=== PATIENT | male | born 1980 | race Two or more races ===

== ENCOUNTER 2017-05-29 17:19 | Emergency (ER) | payer OTHER ==
[~2017-05-29] VITALS: Ht 167.6 cm; Wt 81.6 kg
[2017-05-29 17:40] VITALS: BP 113/71
[2017-05-29 18:59] VITALS: BP 110/68
[2017-05-29 19:06] LABS: BASOPHILS % (AUTO) 1.3 % (0.0-2.0); EOSINOPHILS % (AUTO) 1.6 % (0.0-3.0); LYMPHOCYTES % (AUTO) 24.3 % (20.0-45.0); MEAN CORPUSCULAR HEMOGLOBIN 32.6 PG (27.0-31.0); MEAN CORPUSCULAR HGB CONC 35.1 G/DL (32.0-36.0); MEAN CORPUSCULAR VOLUME 93 FL (80-99); MEAN PLATELET VOLUME 6.2 FL (6.5-10.1); MONOCYTES % (AUTO) 8.7 % (1.0-10.0); NEUTROPHILS % (AUTO) 64.1 % (45.0-75.0); PLATELET COUNT 245 K/UL (150-450); RED BLOOD COUNT 4.63 M/UL (4.70-6.10); RED CELL DISTRIBUTION WIDTH 11.7 % (11.6-14.8); WHITE BLOOD COUNT 8.9 K/UL (4.8-10.8)
[2017-05-29 19:07] LABS: APPEARANCE,URINE CLEAR; KETONES,URINE NEGATIVE (NEGATIVE); LEUKOCYTE ESTERASE ,URINE NEGATIVE (NEGATIVE); NITRITE,URINE NEGATIVE (NEGATIVE); PH,URINE 6 (4.5-8.0); PROTEIN,URINE NEGATIVE (NEGATIVE); UROBILINOGEN,URINE NORMAL MG/DL (0.0-1.0)
[2017-05-29 19:12] LABS: INR 0.9 (0.9-1.1); PROTHROMBIN TIME 9.8 SEC (9.30-11.50)
--- NOTE | 2017-05-29 19:15 | Emergency Room Report ---
History of Present Illness General Chief Complaint: Abdominal Pain Source: Patient Present Illness HPI [id number] walk-in from [employer] where he works with acute worsening of abdominal pain with nausea. Last BM yesterday Noted "change" to known umbilical hernia he has had for about 9 months He states workman comp told him its probably d/t heavy lifting at work has not had CT Has followup appt in mid-may Denies other medical problems S/p appendectomy Allergies: Coded Allergies: No Known Allergies (Unverified , 05/27/15) Patient History Past Medical History: none Past Surgical History: appy, other - umbilical hernia Pertinent Family History: none Social History: Denies: alcohol use, drug use, smoking Immunizations: UTD Reviewed Nursing Documentation: PMH: Agreed, PSxH: Agreed Nursing Documentation-PMH Past Medical History: No History, Except For Hx Gastrointestinal Problems: Yes - Umbilical Hernia Review of Systems All Other Systems: negative except mentioned in HPI Physical Exam Vital Signs Date Time Temp Pulse Resp B/P Pulse Ox O2 Delivery O2 Flow Rate FiO2 05/29/17 17:29 98.4 70 16 113/71 99 05/29/17 18:59 Room Air Sp02 EP Interpretation: reviewed, normal General Appearance: normal inspection, well appearing, no apparent distress, alert, GCS 15, non-toxic Head: normocephalic, atraumatic Eyes: bilateral eye EOMI, bilateral eye PERRL ENT: normal ENT inspection, hearing grossly normal, normal voice Neck: normal inspection, full range of motion, supple, no bony tend Respiratory: normal inspection, lungs clear, normal breath sounds, no respiratory distress, no retraction, no wheezing Cardiovascular #1: regular rate, rhythm, no edema Gastrointestinal: normal inspection, normal bowel sounds, soft, no guarding, no hernia, other - reducible umbilical hernia. No overlying erythema. No focal ttp on exam Genitourinary: no CVA tenderness Musculoskeletal: normal inspection, back normal, normal range of motion, Lesly' s Sign negative Neurologic: normal inspection, alert, oriented x3, responsive, short goods drier III-XII nml as tested, motor strength/tone normal, speech normal Psychiatric: normal inspection, judgement/insight normal, mood/affect normal Skin: normal inspection, normal color, no rash Medical Decision Making Diagnostic Impression: Primary Impression: Abdominal pain Qualified Codes: R10.33 - Periumbilical pain Additional Impression: Umbilical hernia Qualified Codes: K42.9 - Umbilical hernia without obstruction or gangrene ER Course Umbilical hernia - Fat containing hernia on CT. No obstruction. - No leuks. Lactate normal - Easily reducible. No overlying erythema - Low suspicion for strangulation, incarceration - Advised outpatient GenSurg followup - Given copy of labs, CT report Last Vital Signs Date Time Temp Pulse Resp B/P Pulse Ox O2 Delivery O2 Flow Rate FiO2 05/29/17 18:59 77 19 110/68 100 Room Air 05/29/17 17:40 98.4 Status: improved Disposition: HOME, SELF-CARE JOAN MCKEON M.D. May 29, 2017 19:15
[2017-05-29 19:22] VITALS: BP 116/72
[2017-05-29 19:31] LABS: ALANINE AMINOTRANSFERASE 22 U/L (3-41); ANION GAP 11 (5-15); ASPARTATE AMINO TRANSFERASE 20 U/L (5-40); CALCIUM 9.6 mg/dL (8.6-10.2); CARBON DIOXIDE 27 mEQ/L (20-30); CHLORIDE 101 mEQ/L (98-107); CREATININE 0.8 mg/dL (0.7-1.2); GLOMERULAR FILTRATION RATE > 60 mL/min (>60); HEMOLYSIS 8; LIPASE 23 U/L (< 60); POTASSIUM 4.3 mEQ/L (3.4-4.9); SODIUM 139 mEQ/L (135-145); TOTAL PROTEIN 8.6 g/dL (6.6-8.7)
[2017-05-29 20:32] VITALS: BP 116/72
--- NOTE | 2017-05-30 13:20 | Diagnostic Imaging Report ---
Indications: Abdominal pain Technique: Continuous helical CT imaging of the abdomen and pelvis was performed with automatic exposure control following administration of nonionic IV contrast only, on a Siemens sensation [address] scanner. Axial, coronal, sagittal images were reconstructed at 5 mm slice thickness. No oral contrast was administered per requesting physician's order, despite no contraindications listed in either submitted clinical data or tech note.. CTDI volume(s): 18 mGy Total DLP: 968 mGy-cm Findings: Comparison: None Lack of oral contrast limits evaluation of gastrointestinal tract, nondilated throughout. Appendix identified. No obvious mural thickening, adjacent stranding, extraluminal gas or fluid collections identified. The distal aspect of left ureter demonstrates segmental dilation to the level of the ureterovesical junction. No obvious stone or mass identified. Prominent umbilical hernia contains fat and mild stranding.. Liver, gallbladder, pancreas, spleen, adrenal glands, kidneys, unopacified right ureter and urinary bladder, prostate, seminal vesicles, vascular structures, retroperitoneum, mesentery, remainder visualized abdominopelvic anatomy unremarkable. 5 mm hazy nodular density interface of segment lower lobe left lung. Right lung base, bilateral adjacent pleural surfaces clear. No focal skeletal abnormalities are identified. IMPRESSION: Segmental dilation distal aspect left ureter without obvious obstructive etiology, of uncertain clinical significance. CT urography may be of benefit in further evaluation. Nonvisualization of appendix--no evidence of acute appendicitis Umbilical hernia with fat and stranding. Strangulation/fat necrosis not excludable. Correlate clinically. No other evidence of acute abdominopelvic disease, with limitation as described. Subtle but potentially significant abnormalities the gastrointestinal tract may be missed. Repeat CT scan with full oral and IV contrast preparation recommended for more complete evaluation, as clinically indicated 5 mm noncalcified nodule left lung base, nonspecific. Dedicated contrast-enhanced CT scan the thorax recommended for further evaluation. This correlates with [facility] preliminary report.
== END 2017-05-29 20:40 | disposition home or self-care (01) ==
LOC: EMR 20:03
DX: K42.9 Umbilical hernia without obstruction or gangrene (principal)
CPT/HCPCS: 36415; 74177; 80053; 81003; 83605; 83690; 85025; 85610; 85730; 86850; 86900; 86901; 96374; 99284; J2405; Q9967